=== PATIENT | female | born 1955 | race Caucasian/White ===

== ENCOUNTER 2017-11-12 15:15 | Outpatient (REF) | payer BC, SELFPAY ==
[2017-11-12 22:28] LABS: Potassium 3.5 mmol/L (3.5-5.1)
[2017-11-12 22:39] LABS: Hemoglobin A1C 6.3 % (4.5-6.2)
== END 2017-11-12 15:16 ==
LOC: NCHCN 15:15
PROVIDERS: Visit Provider Internal Medicine
DX: E87.6 Hypokalemia (principal); I10 Essential (primary) hypertension; E66.01 Morbid (severe) obesity due to excess calories
CPT/HCPCS: 83036; 84132

== ENCOUNTER 2018-02-02 21:07 | Outpatient (REF) | payer BC, SELFPAY ==
[2018-02-02 22:35] LABS: Potassium 3.1 mmol/L (3.5-5.1); TSH (W/Ref FT4) 1.37 uIU/mL (0.358-3.74)
== END 2018-02-02 21:27 ==
LOC: NCHCN 21:07
PROVIDERS: Visit Provider Internal Medicine
DX: I10 Essential (primary) hypertension (principal); E87.6 Hypokalemia; E03.9 Hypothyroidism, unspecified; E66.01 Morbid (severe) obesity due to excess calories
CPT/HCPCS: 84132; 84443

== ENCOUNTER 2018-04-06 08:45 | Outpatient (REF) | payer BC, SELFPAY ==
[2018-04-06 21:10] LABS: Potassium 4.2 mmol/L (3.5-5.1)
== END 2018-04-06 09:05 ==
LOC: NCHCN 08:45
PROVIDERS: Visit Provider Internal Medicine
DX: E03.9 Hypothyroidism, unspecified (principal); E87.6 Hypokalemia
CPT/HCPCS: 84132

== ENCOUNTER 2018-06-10 15:12 | Outpatient (REF) | payer BC, SELFPAY ==
[2018-06-10 22:50] LABS: Potassium 3.5 mmol/L (3.5-5.1)
[2018-06-10 23:03] LABS: Hemoglobin A1C 6.5 % (4.5-6.2)
== END 2018-06-10 15:32 ==
LOC: NCHCN 15:12
PROVIDERS: Visit Provider Internal Medicine
DX: F32.9 Major depressive disorder, single episode, unspecified (principal); E87.6 Hypokalemia; E74.39 Other disorders of intestinal carbohydrate absorption; E66.01 Morbid (severe) obesity due to excess calories
CPT/HCPCS: 83036; 84132

== ENCOUNTER 2019-01-15 08:31 | Outpatient (REF) | payer BC, SELFPAY ==
[2019-01-15 22:07] LABS: Anion Gap 6.6 mmol/L (3-11); BUN 19 mg/dL (7-18); CO2 33.4 mmol/L (21.0-32.0); CREATININE 1.31 mg/dL (0.55-1.02); Calcium 9.4 mg/dL (8.5-10.1); Calculated LDL 130 mg/dL; Chloride 102 mmol/L (98-107); Cholesterol 210 mg/dL (50-200); Estimated GFR 41.14 (mL/min/1.73m2); Glucose 113 mg/dL (70-100); HDL Cholesterol 44 mg/dL (40-60); Potassium 3.3 mmol/L (3.5-5.1); Sodium 142 mmol/L (136-145); TSH 1.49 uIU/mL (0.36-3.74); Triglyceride 183 mg/dL (30-150)
[2019-01-15 22:15] LABS: COMMENT (LAB VIEW ONLY) 158.93 mg/dL; Microalb ug/mg Crea 4.7 ug/mg Cr
[2019-01-15 22:20] LABS: Hemoglobin A1C 6.3 % (4.5-6.2)
== END 2019-01-15 08:51 ==
LOC: NCHCN 08:31
PROVIDERS: Visit Provider Internal Medicine
DX: I10 Essential (primary) hypertension (principal); E74.39 Other disorders of intestinal carbohydrate absorption; E03.9 Hypothyroidism, unspecified; E87.6 Hypokalemia; N13.2 Hydronephrosis with renal and ureteral calculous obstruction; Z13.220 Encounter for screening for lipoid disorders
CPT/HCPCS: 80048; 80061; 82043; 82570; 83036; 84443

== ENCOUNTER 2019-05-17 09:00 | Outpatient (REF) | payer BC, SELFPAY ==
[2019-05-17 21:09] LABS: Hemoglobin A1C 6.6 % (3.8-5.6)
[2019-05-17 21:16] LABS: ALT 17 U/L (14-59); AST 16 U/L (15-37); Albumin 3.7 g/dL (3.4-5.0); Alkaline Phosphatase 76 U/L (46-116); Anion Gap 9.3 mmol/L (3-11); BUN 19 mg/dL (7-18); Bilirubin, Total 0.5 mg/dL (0.2-1.0); CO2 31.7 mmol/L (21.0-32.0); CREATININE 1.28 mg/dL (0.55-1.02); Calcium 9.5 mg/dL (8.5-10.1); Chloride 102 mmol/L (98-107); Estimated GFR 42.25 (mL/min/1.73m2); Glucose 115 mg/dL (74-106); Potassium 3.4 mmol/L (3.5-5.1); Sodium 143 mmol/L (136-145); Total Protein 6.9 g/dL (6.4-8.2)
== END 2019-05-17 09:20 ==
LOC: NCHCN 09:00
PROVIDERS: Visit Provider Internal Medicine
DX: E74.39 Other disorders of intestinal carbohydrate absorption (principal); I10 Essential (primary) hypertension; R94.4 Abnormal results of kidney function studies
CPT/HCPCS: 80053; 83036

== ENCOUNTER 2019-06-02 09:35 | Outpatient (REF) | payer BC, SELFPAY ==
[2019-06-02 22:17] LABS: Anion Gap 7.7 mmol/L (3-11); BUN 16 mg/dL (7-18); CO2 28.3 mmol/L (21.0-32.0); CREATININE 1.26 mg/dL (0.55-1.02); Calcium 8.8 mg/dL (8.5-10.1); Chloride 107 mmol/L (98-107); Estimated GFR 42.89 (mL/min/1.73m2); Glucose 94 mg/dL (74-106); Potassium 3.8 mmol/L (3.5-5.1); Sodium 143 mmol/L (136-145)
== END 2019-06-02 09:55 ==
LOC: NCHCN 09:35
PROVIDERS: Visit Provider Internal Medicine
DX: E11.9 Type 2 diabetes mellitus without complications (principal); I10 Essential (primary) hypertension; E87.6 Hypokalemia
CPT/HCPCS: 80048

== ENCOUNTER 2019-09-01 07:56 | Outpatient (REF) | payer BC, SELFPAY ==
[2019-09-01 22:05] LABS: Anion Gap 5.1 mmol/L (3-11); BUN 31 mg/dL (7-18); CO2 29.9 mmol/L (21.0-32.0); CREATININE 1.58 mg/dL (0.55-1.02); Calcium 9.5 mg/dL (8.5-10.1); Chloride 104 mmol/L (98-107); Estimated GFR 33.03 (mL/min/1.73m2); Glucose 100 mg/dL (74-106); Potassium 3.9 mmol/L (3.5-5.1); Sodium 139 mmol/L (136-145)
[2019-09-02 15:31] LABS: Hemoglobin A1C 6.1 % (3.8-5.6)
== END 2019-09-01 08:16 ==
LOC: NCHCN 07:56
PROVIDERS: PCP Internal Medicine; Visit Provider Internal Medicine
DX: N18.3 Chronic kidney disease, stage 3 (moderate) (principal); E11.9 Type 2 diabetes mellitus without complications
CPT/HCPCS: 80048; 83036

== ENCOUNTER 2019-09-15 18:44 | Outpatient (REF) | payer BC, SELFPAY ==
[2019-09-15 21:40] LABS: Anion Gap 8.9 mmol/L (3-11); BUN 26 mg/dL (7-18); CO2 28.1 mmol/L (21.0-32.0); CREATININE 1.56 mg/dL (0.55-1.02); Calcium 8.9 mg/dL (8.5-10.1); Chloride 108 mmol/L (98-107); Estimated GFR 33.52 (mL/min/1.73m2); Glucose 103 mg/dL (74-106); Potassium 4.1 mmol/L (3.5-5.1); Sodium 145 mmol/L (136-145)
== END 2019-09-15 19:04 ==
LOC: NCHCN 18:44
PROVIDERS: PCP Internal Medicine; Visit Provider Internal Medicine
DX: N17.9 Acute kidney failure, unspecified (principal)
CPT/HCPCS: 80048

== ENCOUNTER 2019-09-17 09:43 | Outpatient (REF) | payer BC, SELFPAY ==
[2019-09-17 21:09] LABS: Abs Immature Grans 0.09 k/cumm (0.0-0.09); Absolute Basophil Count 0.02 k/cumm (0.0-0.2); Absolute Eosinophil Count 0.22 k/cumm (0.0-0.7); Absolute Lymphocyte Count 1.37 k/cumm (1.2-3.4); Absolute Monocyte Count 0.68 k/cumm (0.11-0.7); Absolute Neutrophil Count 3.61 k/cumm (1.2-6.7); Basophils % 0.3; Eosinophils % 3.7; HCT 38.2 % (36.0-46.0); HGB 12.4 g/dL (12.0-15.5); Immature Grans % 1.5 %; Lymphocytes % 22.9; Mean Corp. HGB Concentration 32.5 g/dL (32.0-36.0); Mean Corpuscular Hemoglobin 30.5 pg (27.0-33.0); Mean Corpuscular Volume 93.9 fL (80-95); Mean Platelet Volume 11.8 fL (8.0-11.0); Monocytes % 11.4; Neutrophils % 60.2; Platelet Count 251 x1000/uL (130-400); RBC 4.07 m/cumm (4.00-5.20); RBC Distribution Width 15.1 % (11.7-14.6); White Blood Cell Count 5.99 k/cumm (4.4-10.8)
== END 2019-09-17 10:03 ==
LOC: NCHCN 09:43
PROVIDERS: PCP Internal Medicine; Visit Provider Internal Medicine
DX: R06.02 Shortness of breath (principal); I10 Essential (primary) hypertension; F32.9 Major depressive disorder, single episode, unspecified; E11.9 Type 2 diabetes mellitus without complications; N17.9 Acute kidney failure, unspecified
CPT/HCPCS: 85025

== ENCOUNTER 2020-03-10 08:48 | Outpatient (REF) | payer BC, SELFPAY ==
[2020-03-10 21:16] LABS: Hemoglobin A1C 5.9 % (<5.7)
[2020-03-10 21:19] LABS: Calculated LDL 82 mg/dL (<100); Cholesterol 152 mg/dL (<200); HDL Cholesterol 47 mg/dL (40-60); TSH 0.58 uIU/mL (0.36-3.74); Triglyceride 116 mg/dL (<150)
== END 2020-03-10 09:08 ==
LOC: NCHCN 08:48
PROVIDERS: PCP Internal Medicine; Visit Provider Internal Medicine
DX: E03.9 Hypothyroidism, unspecified (principal); E78.5 Hyperlipidemia, unspecified; E11.9 Type 2 diabetes mellitus without complications
CPT/HCPCS: 80061; 83036; 84443

== ENCOUNTER 2020-11-10 19:38 | Outpatient (REF) | payer BC, SELFPAY ==
[2020-11-10 19:57] LABS: HCT 31.1 % (36.0-46.0); HGB 10.3 g/dL (11.2-15.7)
[2020-11-10 20:26] LABS: Hemoglobin A1C 6.5 % (<5.7)
== END 2020-11-10 19:39 | disposition home or self-care (01) ==
LOC: NCHCN 19:38
PROVIDERS: PCP Internal Medicine; Visit Provider Internal Medicine
DX: E11.9 Type 2 diabetes mellitus without complications (principal)
CPT/HCPCS: 83036; 85014; 85018

== ENCOUNTER 2020-12-13 23:57 | Outpatient (REF) | payer BC, SELFPAY ==
[2020-12-14 14:53] LABS: COMMENT (LAB VIEW ONLY) 77.55 mg/dL; Microalb ug/mg Crea 18.3 ug/mg Cr
== END 2020-12-13 23:58 | disposition home or self-care (01) ==
LOC: NCHCN 23:57
PROVIDERS: PCP Internal Medicine; Visit Provider Internal Medicine
DX: R60.9 Edema, unspecified (principal)
CPT/HCPCS: 82043; 82570